=== PATIENT | male | born 1990 | race Caucasian/White ===

== ENCOUNTER 2019-11-12 22:06 | Emergency (ER) | payer BC ==
[2019-11-12 22:13] VITALS: BP 143/91; PULSE 77; RESP 18; TEMP 99
[2019-11-12] MEDS ORDERED: ACET/COD 300 MG/30 MG STARTER PACK 6 TAB BTL PO STA (22:32)
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
--- NOTE | 2019-11-12 23:00 | XR ---
EXAMINATION TYPE: XR elbow complete RT DATE OF EXAM: 11/12/2019 COMPARISON: NONE HISTORY: Elbow pain TECHNIQUE: 3 views FINDINGS: Elbow joint spaces are fairly normal. I see no fracture nor dislocation. There are no patho logic calcifications. There is no evidence of elbow joint effusion. IMPRESSION: Negative right elbow exam. No fracture.
== END 2019-11-12 23:19 | disposition home or self-care (01) ==
LOC: EC 22:06
DX: S59.901A Unspecified injury of right elbow, initial encounter (principal); F17.200 Nicotine dependence, unspecified, uncomplicated; Z91.030 Bee allergy status; W22.8XXA Striking against or struck by other objects, initial encounter; Y93.89 Activity, other specified
CPT/HCPCS: 99283

== ENCOUNTER 2021-04-12 02:53 | Emergency (ER) | payer BC ==
[2021-04-12 03:19] VITALS: BP 144/74; PULSE 83; RESP 18; TEMP 98.6
[2021-04-12] MEDS ORDERED: ONDANSETRON 4 MG/2 ML VIAL IVP STA (04:15)
[2021-04-12] MEDS ORDERED: SODIUM CHLORIDE 0.9% 1,000 ML IV ONE (04:15)
[2021-04-12] MEDS ORDERED: ONDANSETRON ODT 4 MG TAB PO STA (04:41)
--- NOTE | 2021-04-12 05:23 | ED ---
Nausea/Vomiting/Diarrhea HPI - General Chief complaint: Nausea/Vomiting/Diarrhea Stated complaint: Arm numbness Time Seen by Provider: 04/12/21 04:10 Source: patient Mode of arrival: ambulatory Limitations: no limitations - History of Present Illness MD complaint: nausea, vomiting -: hour(s) Description of Vomiting: food contents Location: epigastric Severity: mild Quality: other (Burning) Consistency: now resolved Improves with: vomiting Worsens with: none Context: recent antibiotic use Associated Symptoms: denies other symptoms - Related Data Allergies Allergy/AdvReac Type Severity Reaction Status Date / Time bee venom protein (honey bee) Allergy Anaphylaxis Verified 11/12/19 22:14 Review of Systems ROS Statement: Those systems with pertinent positive or pertinent negative responses have been documented in the HPI. ROS Other: All systems not noted in ROS Statement are negative. Constitutional: Denies: fever ENT: Reports: throat pain Respiratory: Denies: cough, dyspnea Cardiovascular: Denies: chest pain, palpitations Gastrointestinal: Reports: abdominal pain, nausea, vomiting. 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 Absent: scleral icterus, conjunctival injection ENT exam: Present: normal oropharynx Respiratory exam: Present: normal lung sounds bilaterally. Absent: respiratory distress, wheezes, rales, rhonchi, stridor Cardiovascular Exam: Present: regular rate, normal rhythm, normal heart sounds. Absent: systolic murmur, diastolic murmur, rubs, gallop GI/Abdominal exam: Present: soft. Absent: distended, tenderness, guarding, rebound, rigid, mass, pulsatile mass Extremities exam: Present: normal inspection, normal capillary refill Back exam: Present: normal inspection. Absent: CVA tenderness (R), CVA tenderness (L) Neurological exam: Present: alert Skin exam: Present: warm, dry, intact, normal color. Absent: rash Course Vital Signs 04/12/21 03:12 Temperature 98.6 F Pulse Rate 83 Respiratory 18 Rate Blood Pressure 144/74 O2 Sat by Pulse 100 Oximetry Disposition Clinical Impression: Gastritis, Dehydration Disposition: HOME SELF-CARE Condition: Good Instructions (If sedation given, give patient instructions): Gastritis (DC), Dehydration (ED) Is patient prescribed a controlled substance at d/c from ED?: No Referrals: Shaheed Reyes MD [Primary Care Provider] - 1-2 days
== END 2021-04-12 05:45 | disposition home or self-care (01) ==
LOC: EC 02:53
DX: K29.70 Gastritis, unspecified, without bleeding (principal); E86.0 Dehydration; J45.909 Unspecified asthma, uncomplicated; F17.200 Nicotine dependence, unspecified, uncomplicated
CPT/HCPCS: 99284; 96374; 96361; 93005; J2405